=== PATIENT | female | born 1985 | race Caucasian/White ===

== ENCOUNTER 2016-05-20 16:27 | Emergency (ER) | payer OTHER ==
--- NOTE | 2016-05-20 17:37 | EDDOCDS ---
Physician Documentation [facility] Name: Myranda Quinones Age: 30 yrs Sex: Female : 1985 Arrival Date: 05/20/2016 Time: 16:27 Bed Triage 3 Private MD: [facility] Disposition: 05/20/16 17:30 Discharged to Home/Self Care. Impression: Acute pharyngitis. - Condition is Stable. - Discharge Instructions: Pharyngitis. - Prescriptions for Tylenol 325 mg Oral Tablet - take 2 tablet by ORAL route every 6 hours as needed; 1 bottle. Zithromax 250 mg Oral Tablet - take 2 tablet by ORAL route once daily strep dosing; 10 tablet. - Medication Reconciliation, Local Pharmacy Hours form. - Follow up: [facility]; When: 2 - 3 days; Reason: Continuance of care. Follow up: Emergency Department; When: As needed; Reason: Worsening of conditions. - Problem is new. - Symptoms have improved. Historical: - Allergies: PENICILLINS (Hives); - Home Meds: 1. Valacyclovir 25 mg Oral 1 tab once daily - PMHx: none; - PSHx: ; tubal removal; - Social history: Smoking status: Patient states former smoker of tobacco. No barriers to communication noted, The patient speaks fluent Belarusian. - Family history: Not pertinent. - : The pt / caregiver states he / she is not on anticoagulants. Home medication list is obtained from the patient. - Exposure Risk Screening:: None identified. 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 6 in. (167.64 cm) (R); 16:29 Body Mass Index 26.15 (73.48 kg, 167.64 cm) dd6 MDM: 17:31 azithromycin 500 mg PO once ordered. dk1 17:31 Acetaminophen Tablet 650 mg PO once ordered. dk1 17:35 Financial registration complete. gjb Signatures: Darshan Burciaga PA-C PA-C dk1 Amy Reynoso RN RN ms18 Lizy Mcmahonb MTDD
--- NOTE | 2016-05-20 17:37 | EDDOCDS ---
Nurse's Notes [facility] Name: Myranda Quinones Age: 30 yrs Sex: Female : 1985 Arrival Date: 05/20/2016 Time: 16:27 Bed Triage 3 Private MD: [place] [facility] [place] Diagnosis: Acute pharyngitis Presentation: 05/20 16:36 Presenting complaint: Patient states: that she was around a friend who has tonsillitis ms18 and burton woke up with a sore throat and fever this morning. Risk factors: Stridor is not present. Drooling is not present. Shortness of breath is not present. Cellulitis is not present. Adult Sepsis Screening: The patient does not have new or worsening altered mentation. Patient's respiratory rate is less than 22. Systolic blood pressure is greater than 100. Patient has a qSOFA score of 0- Negative Sepsis Screen. Suicide/Homicide risk assessment- the patient denies having any suicidal and/or homicidal ideations and does not present with any other emotional, behavioral or mental health complaints. Status: disabled . Transition of care: patient was not received from another setting of care. 16:36 Acuity: AKIRA Level 4 ms18 16:36 Method Of Arrival: Walkin/Carried/Asstd ms18 Triage Assessment: 16:40 General: Appears in no apparent distress. Pain: Location: throat Pain currently is 6 ms18 out of 10 on a pain scale. HIV screening NA for this visit Offered previously. Neurological: Level of Consciousness is awake, alert, obeys commands, Oriented to person, place, time. EENT: Throat is reddened. Respiratory: No deficits noted. Derm: Skin is pink, warm & dry. 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 Valacyclovir 25 mg Oral 1 tab once daily - PMHx: none; - PSHx: ; tubal removal; - Social history: Smoking status: Patient states former smoker of tobacco. No barriers to communication noted, The patient speaks fluent Indonesian. - Family history: Not pertinent. - : The pt / caregiver states he / she is not on anticoagulants. Home medication list is obtained from the patient. - Exposure Risk Screening:: None identified. Screenin:30 Screening information is obtained from the patient. Fall risk: No risks identified. ms18 Assistance ADL's: requires no assistance with activities of daily living. Abuse/DV Screen: The patient / caregiver reports he/she is: not in a situation that causes fear, pain or injury. Nutritional screening: No deficits noted. Advance Directives: There is no living will. Advance Directives:. home support is adequate. Assessment: 17:30 General: Appears in no apparent distress, comfortable, Behavior is appropriate for age, ms18 cooperative. Pain: Location: throat. Neurological: Level of Consciousness is awake, alert, obeys commands, Oriented to person, place, time. EENT: Throat is reddened. Respiratory: Airway is patent Respiratory effort is even, unlabored. Derm: Skin is pink, warm & dry. Vital Signs: 16:29 BP 153 / 87; Pulse 84; Resp 18 S; Temp 99.4(O); Pulse Ox 99% on R/A; Weight 73.48 kg dd6 (R); Height 5 ft. 6 in. (167.64 cm) (R); 16:29 Body Mass Index 26.15 (73.48 kg, 167.64 cm) dd6 Vitals: 16:29 Log In Time: May 20, 2016 at 16:27. dd6 ED Course: 16:28 Patient visited by Jaxon Herrera PCA. dd6 16:28 Patient moved to Waiting dd6 16:29 [facility] is Private Physician. dd6 16:30 Patient moved to Pre RCE dd6 16:38 Triage Initiated ms18 17:00 Patient moved to Triage 3 kcs 17:01 Patient moved to Pre RCE kcs 17:20 Darshan Burciaga PA-C is PHCP. dk1 17:20 Daniela Fuller MD is Attending Physician. dk1 17:20 Patient moved to Triage 3 ms18 17:21 Patient visited by Darshan Burciaga PA-C. dk1 17:30 [facility] is Referral Physician. dk1 17:30 The patient / caregiver is instructed regarding the plan of care and ED course. Patient ms18 has correct armband on for positive identification. Call light in reach. Property sent home with patient. :Personal belongings accompany Pt. 17:30 No IV's were initiated during this patient's visit. No procedures done that require ms18 assistance. Order Results: There are currently no results for this order. Outcome: 17:30 Discharge ordered by Provider. dk1 17:30 Discharge Assessment: Patient awake, alert and oriented x 3. No cognitive and/or ms18 functional deficits noted. Patient verbalized understanding of disposition instructions. patient administered narcotics -. The following High Risk Discharge criteria are identified: None. Discharged to home ambulatory. Condition: good Condition: stable. Discharge instructions given to patient, Instructed on discharge instructions, follow up and referral plans. medication usage, Demonstrated understanding of instructions, medications, Pt was receptive of discharge instructions/ teaching. Prescriptions given X 2. No special radiology studies were completed. 17:36 Patient left the ED. ms18 Signatures: Michelle Nicole, RN RN Darshan Gorman PA-C PA-C dk1 Jaxon Herrera, FEDERAL AID COORDINATOR FEDERAL AID COORDINATOR dd6 Amy Reynoso,RN RN ms18 MTDD
[2016-05-20] MEDS ORDERED: ACETAMINOPHEN 325 MG TAB As Ordered ONE (17:38)
[2016-05-20] MEDS ORDERED: AZITHROMYCIN 250 MG TAB As Ordered ONE (17:38)
--- NOTE | 2016-05-20 17:41 | EDDOCDS ---
Nurse's Notes [facility] Name: Myranda Quinones Age: 30 yrs Sex: Female : 1985 Arrival Date: 05/20/2016 Time: 16:27 Bed Triage 3 Private MD: [place] Zen [place] Diagnosis: Acute pharyngitis Presentation: 05/20 16:36 Presenting complaint: Patient states: that she was around a friend who has tonsillitis ms18 and burton woke up with a sore throat and fever this morning. Risk factors: Stridor is not present. Drooling is not present. Shortness of breath is not present. Cellulitis is not present. Adult Sepsis Screening: The patient does not have new or worsening altered mentation. Patient's respiratory rate is less than 22. Systolic blood pressure is greater than 100. Patient has a qSOFA score of 0- Negative Sepsis Screen. Suicide/Homicide risk assessment- the patient denies having any suicidal and/or homicidal ideations and does not present with any other emotional, behavioral or mental health complaints. Status: disabled . Transition of care: patient was not received from another setting of care. 16:36 Acuity: AKIRA Level 4 ms18 16:36 Method Of Arrival: Walkin/Carried/Asstd ms18 Triage Assessment: 16:40 General: Appears in no apparent distress. Pain: Location: throat Pain currently is 6 ms18 out of 10 on a pain scale. HIV screening NA for this visit Offered previously. Neurological: Level of Consciousness is awake, alert, obeys commands, Oriented to person, place, time. EENT: Throat is reddened. Respiratory: No deficits noted. Derm: Skin is pink, warm & dry. 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 Valacyclovir 25 mg Oral 1 tab once daily - PMHx: none; - PSHx: ; tubal removal; - Social history: Smoking status: Patient states former smoker of tobacco. No barriers to communication noted, The patient speaks fluent Tajik. - Family history: Not pertinent. - : The pt / caregiver states he / she is not on anticoagulants. Home medication list is obtained from the patient. - Exposure Risk Screening:: None identified. Screenin:30 Screening information is obtained from the patient. Fall risk: No risks identified. ms18 Assistance ADL's: requires no assistance with activities of daily living. Abuse/DV Screen: The patient / caregiver reports he/she is: not in a situation that causes fear, pain or injury. Nutritional screening: No deficits noted. Advance Directives: There is no living will. Advance Directives:. home support is adequate. Assessment: 17:30 General: Appears in no apparent distress, comfortable, Behavior is appropriate for age, ms18 cooperative. Pain: Location: throat. Neurological: Level of Consciousness is awake, alert, obeys commands, Oriented to person, place, time. EENT: Throat is reddened. Respiratory: Airway is patent Respiratory effort is even, unlabored. Derm: Skin is pink, warm & dry. Vital Signs: 16:29 BP 153 / 87; Pulse 84; Resp 18 S; Temp 99.4(O); Pulse Ox 99% on R/A; Weight 73.48 kg dd6 (R); Height 5 ft. 6 in. (167.64 cm) (R); 16:29 Body Mass Index 26.15 (73.48 kg, 167.64 cm) dd6 Vitals: 16:29 Log In Time: May 20, 2016 at 16:27. dd6 ED Course: 16:28 Patient visited by Jaxon Herrera PCA. dd6 16:28 Patient moved to Waiting dd6 16:29 [facility] is Private Physician. dd6 16:30 Patient moved to Pre RCE dd6 16:38 Triage Initiated ms18 17:00 Patient moved to Triage 3 kcs 17:01 Patient moved to Pre RCE kcs 17:20 Darshan Burciaga PA-C is PHCP. dk1 17:20 Daniela Fuller MD is Attending Physician. dk1 17:20 Patient moved to Triage 3 ms18 17:21 Patient visited by Darshan Burciaga PA-C. dk1 17:30 [facility] is Referral Physician. dk1 17:30 The patient / caregiver is instructed regarding the plan of care and ED course. Patient ms18 has correct armband on for positive identification. Call light in reach. Property sent home with patient. :Personal belongings accompany Pt. 17:30 No IV's were initiated during this patient's visit. No procedures done that require ms18 assistance. Administered Medications: 17:40 Drug: azithromycin 500 mg [azithromycin 250 mg tablet (2 tabs)] Route: PO; ms18 17:40 Drug: Acetaminophen 650 mg [acetaminophen 325 mg tablet (2 tabs)] Route: PO; ms18 Order Results: There are currently no results for this order. Outcome: 17:30 Discharge ordered by Provider. dk1 17:30 Discharge Assessment: Patient awake, alert and oriented x 3. No cognitive and/or ms18 functional deficits noted. Patient verbalized understanding of disposition instructions. patient administered narcotics -. The following High Risk Discharge criteria are identified: None. Discharged to home ambulatory. Condition: good Condition: stable. Discharge instructions given to patient, Instructed on discharge instructions, follow up and referral plans. medication usage, Demonstrated understanding of instructions, medications, Pt was receptive of discharge instructions/ teaching. Prescriptions given X 2. No special radiology studies were completed. 17:36 Patient left the ED. ms18 17:40 Patient left the ED. ms18 Signatures: Michelle Nicole, RN RN Darshan Gorman, PA-C PA-C dk1 Jaxon Herrera, SOLAR PROJECT MANAGER SOLAR PROJECT MANAGER dd6 Amy Reynoso,RN RN ms18 MTDD
--- NOTE | 2016-05-20 17:41 | EDDOCDS ---
Physician Documentation [facility] Name: Myranda Quinones Age: 30 yrs Sex: Female : 1985 Arrival Date: 05/20/2016 Time: 16:27 Bed Triage 3 Private MD: [facility] Disposition: 05/20/16 17:30 Discharged to Home/Self Care. Impression: Acute pharyngitis. - Condition is Stable. - Discharge Instructions: Pharyngitis. - Prescriptions for Tylenol 325 mg Oral Tablet - take 2 tablet by ORAL route every 6 hours as needed; 1 bottle. Zithromax 250 mg Oral Tablet - take 2 tablet by ORAL route once daily strep dosing; 10 tablet. - Medication Reconciliation, Local Pharmacy Hours form. - Follow up: [facility]; When: 2 - 3 days; Reason: Continuance of care. Follow up: Emergency Department; When: As needed; Reason: Worsening of conditions. - Problem is new. - Symptoms have improved. Historical: - Allergies: PENICILLINS (Hives); - Home Meds: 1. Valacyclovir 25 mg Oral 1 tab once daily - PMHx: none; - PSHx: ; tubal removal; - Social history: Smoking status: Patient states former smoker of tobacco. No barriers to communication noted, The patient speaks fluent Polish. - Family history: Not pertinent. - : The pt / caregiver states he / she is not on anticoagulants. Home medication list is obtained from the patient. - Exposure Risk Screening:: None identified. 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 6 in. (167.64 cm) (R); 16:29 Body Mass Index 26.15 (73.48 kg, 167.64 cm) dd6 MDM: 17:31 azithromycin 500 mg PO once ordered. dk1 17:31 Acetaminophen Tablet 650 mg PO once ordered. dk1 17:35 Financial registration complete. gjb Administered Medications: 17:40 Drug: azithromycin 500 mg [azithromycin 250 mg tablet (2 tabs)] Route: PO; ms18 17:40 Drug: Acetaminophen 650 mg [acetaminophen 325 mg tablet (2 tabs)] Route: PO; ms18 Signatures: Darshan Burciaga PA-C PA-C dk1 Amy Reynoso RN RN ms18 Lizy Mcmahonb MTDD
--- NOTE | 2016-05-22 18:40 | EDDOCDS ---
Physician Documentation [facility] Name: Myranda Quinones Age: 30 yrs Sex: Female : 1985 Arrival Date: 05/20/2016 Time: 16:27 Bed Triage 3 Private MD: [facility] Disposition: 05/20/16 17:30 Discharged to Home/Self Care. Impression: Acute pharyngitis. - Condition is Stable. - Discharge Instructions: Pharyngitis. - Prescriptions for Tylenol 325 mg Oral Tablet - take 2 tablet by ORAL route every 6 hours as needed; 1 bottle. Zithromax 250 mg Oral Tablet - take 2 tablet by ORAL route once daily strep dosing; 10 tablet. - Medication Reconciliation, Local Pharmacy Hours form. - Follow up: [facility]; When: 2 - 3 days; Reason: Continuance of care. Follow up: Emergency Department; When: As needed; Reason: Worsening of conditions. - Problem is new. - Symptoms have improved. Historical: - Allergies: PENICILLINS (Hives); - Home Meds: 1. Valacyclovir 25 mg Oral 1 tab once daily - PMHx: none; - PSHx: ; tubal removal; - Social history: Smoking status: Patient states former smoker of tobacco. No barriers to communication noted, The patient speaks fluent Frisian. - Family history: Not pertinent. - : The pt / caregiver states he / she is not on anticoagulants. Home medication list is obtained from the patient. - Exposure Risk Screening:: None identified. 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 6 in. (167.64 cm) (R); 16:29 Body Mass Index 26.15 (73.48 kg, 167.64 cm) dd6 MDM: 17:31 azithromycin 500 mg PO once ordered. dk1 17:31 Acetaminophen Tablet 650 mg PO once ordered. dk1 17:35 Financial registration complete. alexander 17:53 [facility] Payment Agreement was scanned into [employer] and attached to record. alexander 05/21 06:02 T-Sheet-- Draft Copy was scanned into [employer] and attached to record. lja Administered Medications: 05/20 17:40 Drug: azithromycin 500 mg [azithromycin 250 mg tablet (2 tabs)] Route: PO; ms18 17:40 Drug: Acetaminophen 650 mg [acetaminophen 325 mg tablet (2 tabs)] Route: PO; ms18 Signatures: Darshan Burciaga PA-C PA-C dk1 Amy Reynoso RN RN ms18 Arel, Lizy Hickey The chart was reviewed and I authenticate all verbal orders and agree with the evaluation and treatment provided.Attachments: 17:53 [facility] Payment Agreement gjb 05/21 06:02 T-Sheet-- Draft Copy angelo Chart Complete MTDD
--- NOTE | 2016-05-22 18:40 | EDDOCDS ---
Physician Documentation [facility] Name: Myranda Quinones Age: 30 yrs Sex: Female : 1985 Arrival Date: 05/20/2016 Time: 16:27 Bed Triage 3 Private MD: [facility] Disposition: 05/20/16 17:30 Discharged to Home/Self Care. Impression: Acute pharyngitis. - Condition is Stable. - Discharge Instructions: Pharyngitis. - Prescriptions for Tylenol 325 mg Oral Tablet - take 2 tablet by ORAL route every 6 hours as needed; 1 bottle. Zithromax 250 mg Oral Tablet - take 2 tablet by ORAL route once daily strep dosing; 10 tablet. - Medication Reconciliation, Local Pharmacy Hours form. - Follow up: [facility]; When: 2 - 3 days; Reason: Continuance of care. Follow up: Emergency Department; When: As needed; Reason: Worsening of conditions. - Problem is new. - Symptoms have improved. Historical: - Allergies: PENICILLINS (Hives); - Home Meds: 1. Valacyclovir 25 mg Oral 1 tab once daily - PMHx: none; - PSHx: ; tubal removal; - Social history: Smoking status: Patient states former smoker of tobacco. No barriers to communication noted, The patient speaks fluent Italian. - Family history: Not pertinent. - : The pt / caregiver states he / she is not on anticoagulants. Home medication list is obtained from the patient. - Exposure Risk Screening:: None identified. 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 6 in. (167.64 cm) (R); 16:29 Body Mass Index 26.15 (73.48 kg, 167.64 cm) dd6 MDM: 17:31 azithromycin 500 mg PO once ordered. dk1 17:31 Acetaminophen Tablet 650 mg PO once ordered. dk1 17:35 Financial registration complete. alexander 17:53 [facility] Payment Agreement was scanned into [employer] and attached to record. alexander 05/21 06:02 T-Sheet-- Draft Copy was scanned into [employer] and attached to record. lja Administered Medications: 05/20 17:40 Drug: azithromycin 500 mg [azithromycin 250 mg tablet (2 tabs)] Route: PO; ms18 17:40 Drug: Acetaminophen 650 mg [acetaminophen 325 mg tablet (2 tabs)] Route: PO; ms18 Signatures: Darshan Burciaga PA-C PA-C dk1 Amy Reynoso RN RN ms18 Arel, Lizy Hickey The chart was reviewed and I authenticate all verbal orders and agree with the evaluation and treatment provided.Attachments: 17:53 [facility] Payment Agreement gjb 05/21 06:02 T-Sheet-- Draft Copy angelo Chart Complete MTDD
--- NOTE | 2016-05-22 18:41 | EDDOCDS ---
Nurse's Notes [facility] Name: Myranda Quinones Age: 30 yrs Sex: Female : 1985 Arrival Date: 05/20/2016 Time: 16:27 Bed Triage 3 Private MD: MT Zen Tate Diagnosis: Acute pharyngitis Presentation: 05/20 16:36 Presenting complaint: Patient states: that she was around a friend who has tonsillitis ms18 and burton woke up with a sore throat and fever this morning. Risk factors: Stridor is not present. Drooling is not present. Shortness of breath is not present. Cellulitis is not present. Adult Sepsis Screening: The patient does not have new or worsening altered mentation. Patient's respiratory rate is less than 22. Systolic blood pressure is greater than 100. Patient has a qSOFA score of 0- Negative Sepsis Screen. Suicide/Homicide risk assessment- the patient denies having any suicidal and/or homicidal ideations and does not present with any other emotional, behavioral or mental health complaints. Status: disabled . Transition of care: patient was not received from another setting of care. 16:36 Acuity: AKIRA Level 4 ms18 16:36 Method Of Arrival: Walkin/Carried/Asstd ms18 Triage Assessment: 16:40 General: Appears in no apparent distress. Pain: Location: throat Pain currently is 6 ms18 out of 10 on a pain scale. HIV screening NA for this visit Offered previously. Neurological: Level of Consciousness is awake, alert, obeys commands, Oriented to person, place, time. EENT: Throat is reddened. Respiratory: No deficits noted. Derm: Skin is pink, warm & dry. 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 Valacyclovir 25 mg Oral 1 tab once daily - PMHx: none; - PSHx: ; tubal removal; - Social history: Smoking status: Patient states former smoker of tobacco. No barriers to communication noted, The patient speaks fluent Japanese. - Family history: Not pertinent. - : The pt / caregiver states he / she is not on anticoagulants. Home medication list is obtained from the patient. - Exposure Risk Screening:: None identified. Screenin:30 Screening information is obtained from the patient. Fall risk: No risks identified. ms18 Assistance ADL's: requires no assistance with activities of daily living. Abuse/DV Screen: The patient / caregiver reports he/she is: not in a situation that causes fear, pain or injury. Nutritional screening: No deficits noted. Advance Directives: There is no living will. Advance Directives:. home support is adequate. Assessment: 17:30 General: Appears in no apparent distress, comfortable, Behavior is appropriate for age, ms18 cooperative. Pain: Location: throat. Neurological: Level of Consciousness is awake, alert, obeys commands, Oriented to person, place, time. EENT: Throat is reddened. Respiratory: Airway is patent Respiratory effort is even, unlabored. Derm: Skin is pink, warm & dry. Vital Signs: 16:29 BP 153 / 87; Pulse 84; Resp 18 S; Temp 99.4(O); Pulse Ox 99% on R/A; Weight 73.48 kg dd6 (R); Height 5 ft. 6 in. (167.64 cm) (R); 16:29 Body Mass Index 26.15 (73.48 kg, 167.64 cm) dd6 Vitals: 16:29 Log In Time: May 20, 2016 at 16:27. dd6 ED Course: 16:28 Patient visited by Jaxon Herrera PCA. dd6 16:28 Patient moved to Waiting dd6 16:29 [facility] is Private Physician. dd6 16:30 Patient moved to Pre RCE dd6 16:38 Triage Initiated ms18 17:00 Patient moved to Triage 3 kcs 17:01 Patient moved to Pre RCE kcs 17:20 Darshan Burciaga PA-C is PHCP. dk1 17:20 Daniela Fuller MD is Attending Physician. dk1 17:20 Patient moved to Triage 3 ms18 17:21 Patient visited by Darshan Burciaga PA-C. dk1 17:30 [facility] is Referral Physician. dk1 17:30 The patient / caregiver is instructed regarding the plan of care and ED course. Patient ms18 has correct armband on for positive identification. Call light in reach. Property sent home with patient. :Personal belongings accompany Pt. 17:30 No IV's were initiated during this patient's visit. No procedures done that require ms18 assistance. 17:53 [facility] Payment Agreement was scanned into [employer] and attached to record. alexander 05/21 06:02 T-Sheet-- Draft Copy was scanned into [employer] and attached to record. lja Administered Medications: 05/20 17:40 Drug: azithromycin 500 mg [azithromycin 250 mg tablet (2 tabs)] Route: PO; ms18 17:40 Drug: Acetaminophen 650 mg [acetaminophen 325 mg tablet (2 tabs)] Route: PO; ms18 Order Results: There are currently no results for this order. Outcome: 17:30 Discharge ordered by Provider. dk1 17:30 Discharge Assessment: Patient awake, alert and oriented x 3. No cognitive and/or ms18 functional deficits noted. Patient verbalized understanding of disposition instructions. patient administered narcotics -. The following High Risk Discharge criteria are identified: None. Discharged to home ambulatory. Condition: good Condition: stable. Discharge instructions given to patient, Instructed on discharge instructions, follow up and referral plans. medication usage, Demonstrated understanding of instructions, medications, Pt was receptive of discharge instructions/ teaching. Prescriptions given X 2. No special radiology studies were completed. 17:36 Patient left the ED. ms18 17:40 Patient left the ED. ms18 Signatures: Michelle Nicole, RN RN Darshan Gorman PA-C PAJimmy dk1 Jaxon Herrera, ART DEALER ART DEALER dd6 Amy Reynoso RN RN ms18 Arepat, Lizy Hickey Chart Complete MTDD
== END 2016-05-20 17:40 | disposition home or self-care (01) ==
LOC: M ED 16:27
DX: J02.9 Acute pharyngitis, unspecified (principal); Z87.891 Personal history of nicotine dependence; Z79.899 Other long term (current) drug therapy; Z88.0 Allergy status to penicillin